=== PATIENT | male | born 1945 | race Caucasian/White ===

== ENCOUNTER → 2017-08-08 | Outpatient (CLI) | payer MEDICARE | END | disposition home or self-care (01) | LOC: SHCH 10:00 | PROVIDERS: ATTEND Internal Medicine Cardiovascular Disease | DX: I48.0 Paroxysmal atrial fibrillation (principal); I73.9 Peripheral vascular disease, unspecified | CPT/HCPCS: 93925 ==

== ENCOUNTER → 2018-09-03 | Outpatient (CLI) | payer OTHER | END | disposition home or self-care (01) | LOC: SHCH 13:49 | PROVIDERS: ATTEND Internal Medicine Cardiovascular Disease | DX: I08.3 Combined rheumatic disorders of mitral, aortic and tricuspid valves (principal); I11.9 Hypertensive heart disease without heart failure; I48.0 Paroxysmal atrial fibrillation | CPT/HCPCS: 93306 ==

== ENCOUNTER 2018-11-27 19:26 | Observation (INO) | payer OTHER ==
[~2018-11-27] VITALS: Ht 172.7 cm; Wt 85.3 kg
[2018-11-27 20:04] LABS: BASOPHILS % (AUTO) 0.6 % (0.0-5.0); HEMATOCRIT 51.5 % (42-54); LYMPHOCYTES % (AUTO) 17.5 % (21.0-51.0); MEAN CORPUSCULAR HEMOGLOBIN 29.9 pg (27.0-33.0); MEAN CORPUSCULAR HGB CONC 33.3 g/dL (32.0-36.0); MEAN CORPUSCULAR VOLUME 89.9 fL (79-99); MONOCYTES % (AUTO) 6.3 % (3.0-13.0); NEUTROPHILS % (AUTO) 74.6 % (40.0-77.0); PLATELET COUNT (AUTO) 272 K/uL (130-400); RED BLOOD CELL COUNT(AUTO) 5.73 MIL/uL (4.50-6.20); WHITE BLOOD COUNT (AUTO) 10.6 K/uL (4.8-10.8)
[2018-11-27 20:15] LABS: CREATININE 0.9 mg/dL (0.5-1.5); POTASSIUM 3.7 mmol/L (3.5-5.1)
[2018-11-27 20:17] LABS: INR 1.11 (0.85-1.15); PARTIAL THROMBOPLASTIN TIME 32.7 SEC (26.3-35.5); PROTHROMBIN TIME 11.6 SEC (9.6-11.6)
[2018-11-27 20:25] LABS: ALBUMIN 3.3 g/dL (3.5-5.0); BILIRUBIN,TOTAL 1.4 mg/dL (0.2-1.0); TOTAL PROTEIN, SERUM 7.4 g/dL (6.0-8.3)
[2018-11-27 20:31] LABS: B-TYPE NATRIURETIC PEPTIDE 108 pg/mL (0-100)
[2018-11-27] MEDS ORDERED: NITROGLYCERIN 1GM/1 INCH PACKET TD ONE (21:17)
[2018-11-27] MEDS ORDERED: SODIUM CHLORIDE 0.9% 1000ML 1,000 ML IV SCH (22:57)
[2018-11-27] MEDS ORDERED: MORPHINE SULFATE 4 MG/1ML SYG IV PRN (23:00)
[2018-11-27] MEDS ORDERED: MORPHINE SULFATE 2 MG/ML 1ML SYG IV PRN (23:00)
[2018-11-27] MEDS ORDERED: HYDRALAZINE HCL 20 MG/ML VIAL IV PRN (23:00)
[2018-11-27] MEDS ORDERED: NITROGLYCERIN 0.4 MG SL TAB SL ONE (23:06)
[2018-11-27] MEDS ORDERED: SODIUM CHLORIDE 0.9% 1000ML 1,000 ML IV ONE (23:46)
[2018-11-28 01:45] VITALS: BP 170/105
[2018-11-28] MEDS ORDERED: LIDOCAINE HCL-MPF 1% 2ML VIAL IVP PRN ×2 (02:30)
[2018-11-28] MEDS ORDERED: POTASSIUM CHLORIDE 10% ELIXIR 20 MEQ/15 ML UDCUP PO PRN (02:30)
[2018-11-28] MEDS ORDERED: POTASSIUM CHLORIDE 20MEQ/100ML 100 ML IV PRN ×2 (02:30)
[2018-11-28] MEDS ORDERED: CLONIDINE HCL 0.1 MG TABLET PO PRN (02:30)
[2018-11-28] MEDS ORDERED: ACETAMINOPHEN 325 MG TAB PO PRN ×2 (02:30)
[2018-11-28] MEDS ORDERED: POTASSIUM CHLORIDE 20 MEQ ERTAB PO PRN (02:30)
[2018-11-28 02:48] LABS: TROPONIN I 0.09 ng/mL (0.00-0.06)
--- NOTE | 2018-11-28 04:30 | NUR ---
PT ASSESSMENT COMPLETE. ADMISSION DATABASE COMPLETE. STATES HAD CHEST PAIN DURING THE DAY. HAS VALVE LEAK ACCORDING TO HIS FAMILY PRACTITIONER DR. BIRD ARNETT. PT AT THE MOMENT IS STABLE. NO PAIN. NO DISTRESS NOTED. IV FLUIDS CONTINUOUS. AAO3. MINIMAL CONFUSION AT TIMES, UNABLE TO RECALL INFORMATION AT TIMES.
[2018-11-28 04:51] VITALS: BP 150/100
--- NOTE | 2018-11-28 05:00 | NUR ---
PT REMOVED IV. NEW 20 G TO RIGHT FOREARM STARTED. PATENT. IV FLUIDS CONTINUOUS.
[2018-11-28] MEDS ORDERED: RIVA20TA PO (06:45)
[2018-11-28] MEDS ORDERED: DOCU250C14 PO (06:45)
[2018-11-28] MEDS ORDERED: FLUT1BLS3 IH (06:45)
[2018-11-28] MEDS ORDERED: FURO40TA5 PO (06:45)
[2018-11-28] MEDS ORDERED: ATEN25TA PO (06:45)
[2018-11-28] MEDS ORDERED: LISI-613 PO (06:45)
[2018-11-28] MEDS ORDERED: GLYC10.7 IH (06:45)
[2018-11-28] MEDS ORDERED: DIGO125T87 PO (06:45)
[2018-11-28] MEDS ORDERED: POTA20TA82 PO (06:45)
--- NOTE | 2018-11-28 06:46 | NUR ---
PT PICKED UP FOR 2VIEW CHEST XRAY
[2018-11-28 07:00] VITALS: BP 148/99
--- NOTE | 2018-11-28 07:20 | NUR ---
ENCOUNTERED PATIENT LAYING ON BED IN A SEMI-GALLAGHER' S POSITION WITH NO COMPLAINTS OF CHEST PAIN. HE DOES HOWEVER VOICED THAT HE STILL FEELS A BIT SHORT OF BREATH ONCE IN A WHILE ESPECIALLY WHEN HE IS AMBULATING. PATIENT IS KEPT NPO FOR EDWIN SCAN ORDERED BY KEL ALCARAZ. FULL ASSESSMENT DONE. CALL LIGHT WITHIN REACH. INSTRUCTED TO CALL FOR ASSISTANCE.
[2018-11-28 08:22] LABS: HEMATOCRIT 52.7 % (42-54); MEAN CORPUSCULAR HEMOGLOBIN 29.9 pg (27.0-33.0); MEAN CORPUSCULAR HGB CONC 32.9 g/dL (32.0-36.0); PLATELET COUNT (AUTO) 249 K/uL (130-400); RED BLOOD CELL COUNT(AUTO) 5.79 MIL/uL (4.50-6.20); RED CELL DISTRIBUTION WIDTH 15.8 % (11.0-15.5); WHITE BLOOD COUNT (AUTO) 9.9 K/uL (4.8-10.8)
[2018-11-28 08:41] LABS: ALBUMIN 3.3 g/dL (3.5-5.0); BILIRUBIN,TOTAL 1.8 mg/dL (0.2-1.0); CREATININE 0.9 mg/dL (0.5-1.5); POTASSIUM 4.2 mmol/L (3.5-5.1); TOTAL PROTEIN, SERUM 7.2 g/dL (6.0-8.3); TROPONIN I 0.11 ng/mL (0.00-0.06)
[2018-11-28] MEDS ORDERED: RIVAROXABAN 20 MG TABLET PO SCH (09:00)
[2018-11-28] MEDS ORDERED: FAMOTIDINE/PF 20 MG/2 ML VIAL IV SCH (09:00)
[2018-11-28] MEDS ORDERED: ASPIRIN 325 MG TABLET PO SCH (09:00)
[2018-11-28] MEDS ORDERED: METOPROLOL TARTRATE 25 MG TAB PO SCH (09:00)
[2018-11-28] MEDS ORDERED: ENOXAPARIN SODIUM 100 MG/1 ML SQ SCH (10:00)
[2018-11-28 11:00] VITALS: BP 159/98
--- NOTE | 2018-11-28 11:51 | NUR ---
DR. PARISH IS IN TO SEE PATIENT. HE IS STILL PENDING EDWIN.
[2018-11-28] MEDS ORDERED: REGADENOSON 0.4 MG/5 ML PF SYG IVP SCH (15:15)
[2018-11-28 16:00] VITALS: BP 175/98
[2018-11-28 17:20] VITALS: BP 153/92
[2018-11-28] MEDS ORDERED: NITR0.4T50 SL (18:41)
[2018-11-28] MEDS ORDERED: FURO40TA7 PO (18:41)
[2018-11-28] MEDS ORDERED: ISOS30TA6 PO (18:41)
--- NOTE | 2018-11-28 19:20 | NUR ---
DISCHARGE INSTRUCTIONS GIVEN TO PATIENT. TEACH BACK METHOD USED TO EDUCATE PATIENT ON DIET, MEDICATIONS, AND F/U APPOINTMENTS. PATIENT VERBALIZED UNDERSTANDING. PIV REMOVED. TIP INTACT. TELE REMOVED AND RETURNED. ALL BELONGINGS WERE PACKED.
[2018-11-28] MEDS ORDERED: ATORVASTATIN CALCIUM 40 MG TABLET PO SCH (21:00)
[2018-11-28] MEDS ORDERED: METOPROLOL TARTRATE 50 MG TAB PO SCH (21:00)
[2018-11-29] MEDS ORDERED: ASPIRIN 81MG TAB.CHEW PO SCH (09:00)
[2018-11-29] MEDS ORDERED: ASPIRIN 325 MG TABLET PO SCH (09:00)
[2018-11-29] MEDS ORDERED: DIGOXIN 125 MCG TABLET PO SCH (09:00)
== END 2018-11-28 20:05 | disposition home or self-care (01) ==
LOC: EDH 19:26 → EDHIP 19:27 → OBSVTOIN 19:27 → INTOOBSV 19:27 → 2DH 11-28 01:41
PROVIDERS: ADMIT Hospitalist; ATTEND Hospitalist
DX: I20.0 Unstable angina (principal); J44.1 Chronic obstructive pulmonary disease with (acute) exacerbation; G47.30 Sleep apnea, unspecified; I08.1 Rheumatic disorders of both mitral and tricuspid valves; I10 Essential (primary) hypertension; I48.2 Chronic atrial fibrillation; Z79.01 Long term (current) use of anticoagulants; Z79.899 Other long term (current) drug therapy; Z87.891 Personal history of nicotine dependence; Z82.49 Family history of ischemic heart disease and other diseases of the circulatory system
CPT/HCPCS: 36415 ×2; 71045; 71046; 78452; 80053 ×2; 80061; 82550 ×3; 83874 ×2; 83880; 84484 ×3; 85025; 85027; 85610; 85730; 93005; 93017; 96372; 96374; 99284; A9500 ×2; G0378 ×22; J1650; J2785; J3490; J7030

== ENCOUNTER → 2019-04-20 | Outpatient (CLI) | payer OTHER ==
[~2019-04-20] MED LIST: ATEN25TA PO; DIATR MEGLU/DIATRIZOATE SODIUM 30 ML BOTTLE ONE; DIATR MEGLU/DIATRIZOATE SODIUM 30 ML BOTTLE PO ONE; DIGO125T71 PO; DOCU250C14 PO; FLUT1BLS3 IH; FURO40TA7 PO; GLYC10.7 IH; ISOS30TA6 PO; LISI-613 PO; NITR0.4T50 SL; POTA20TA82 PO; RIVA20TA PO
== END | disposition home or self-care (01) ==
LOC: RAH 08:32
PROVIDERS: ATTEND Internal Medicine Gastroenterology
DX: K21.9 Gastro-esophageal reflux disease without esophagitis (principal)
CPT/HCPCS: 74240; Q9963

== ENCOUNTER 2019-09-30 15:43 | Emergency (ER) | payer OTHER ==
[~2019-09-30 15:43] MED LIST changes: -DIATR MEGLU/DIATRIZOATE SODIUM 30 ML BOTTLE ONE; -DIATR MEGLU/DIATRIZOATE SODIUM 30 ML BOTTLE PO ONE
[2019-09-30 16:40] LABS: BASOPHILS % (AUTO) 0.5 % (0.0-5.0); EOSINOPHILS % (AUTO) 1.7 % (0.0-8.0); HEMATOCRIT 47.6 % (42-54); LYMPHOCYTES % (AUTO) 22.8 % (21.0-51.0); MEAN CORPUSCULAR HEMOGLOBIN 29.3 pg (27.0-33.0); MEAN CORPUSCULAR HGB CONC 32.8 g/dL (32.0-36.0); MEAN CORPUSCULAR VOLUME 89.3 fL (79-99); MONOCYTES % (AUTO) 9.6 % (3.0-13.0); NEUTROPHILS % (AUTO) 65.1 % (40.0-77.0); PLATELET COUNT (AUTO) 250 K/uL (130-400); RED BLOOD CELL COUNT(AUTO) 5.33 MIL/uL (4.50-6.20); RED CELL DISTRIBUTION WIDTH 14.5 % (11.0-15.5); WHITE BLOOD COUNT (AUTO) 10.6 K/uL (4.8-10.8)
[2019-09-30 16:40] LABS: APPEARANCE,URINE Clear (CLEAR); BILIRUBIN,URINE Negative (NEGATIVE); COLOR,URINE Yellow (YELLOW); GLUCOSE, URINE (UA) Negative (NEGATIVE); KETONES,URINE Negative (NEGATIVE); LEUKOCYTE ESTERASE ,URINE Small (NEGATIVE); NITRATE,URINE Negative (NEGATIVE); OCCULT BLOOD,URINE Negative (NEGATIVE); PROTEIN,URINE Negative (NEGATIVE); UROBILINOGEN,URINE 0.2 mg/dL (0.2-1.0)
[2019-09-30 16:55] LABS: CREATININE 0.9 mg/dL (0.5-1.5); INR 1.22 (0.85-1.15); PARTIAL THROMBOPLASTIN TIME 35.9 SEC (26.3-35.5); POTASSIUM 3.9 mmol/L (3.5-5.1); PROTHROMBIN TIME 13.1 SEC (9.6-11.6)
[2019-09-30 17:02] LABS: ALBUMIN 3.7 g/dL (3.5-5.0); BILIRUBIN,TOTAL 1.7 mg/dL (0.2-1.0); TOTAL PROTEIN, SERUM 7.2 g/dL (6.0-8.3)
[2019-09-30 17:20] LABS: BACTERIA,URINE Few /HPF (None Seen); RBC,URINE None Seen /HPF (0-1)
[2019-09-30 17:21] LABS: SQUAMOUS EPITHELIAL CELL,UR 0-2 /HPF (0-2)
[2019-09-30] MEDS ORDERED: MORPHINE SULFATE 2 MG/ML 1ML SYG ONE (18:08)
[2019-09-30 20:03] LABS: DIGOXIN 0.47 ng/mL (0.50-2.00); THEOPHYLLINE 8.4 mcg/mL (10.0-20.0)
== END 2019-09-30 20:37 | disposition home or self-care (01) ==
LOC: EDH 15:43
DX: R25.2 Cramp and spasm (principal); M79.662 Pain in left lower leg; I48.91 Unspecified atrial fibrillation; J44.9 Chronic obstructive pulmonary disease, unspecified; Z98.890 Other specified postprocedural states
CPT/HCPCS: 36415; 80053; 80162; 80198; 81001; 82550; 83605; 83735; 85025; 85610; 85730; 93970; 96374

== ENCOUNTER → 2019-12-02 | Outpatient (CLI) | payer OTHER ==
[2019-12-02 12:14] LABS: CREATININE 0.9 mg/dL (0.5-1.5)
== END | disposition home or self-care (01) ==
LOC: LAB 11:21
PROVIDERS: ATTEND Otolaryngology Plastic Surgery within the Head & Neck
DX: H90.3 Sensorineural hearing loss, bilateral (principal)
CPT/HCPCS: 36415; 82565; 84520

== ENCOUNTER → 2019-12-11 | Outpatient (CLI) | payer OTHER ==
[~2019-12-11] MED LIST changes: +GADODIAMIDE 10 MMOL/20 ML VIAL IV ONE
== END | disposition home or self-care (01) ==
LOC: RAH 08:34
PROVIDERS: ATTEND Otolaryngology Plastic Surgery within the Head & Neck
DX: G31.9 Degenerative disease of nervous system, unspecified (principal); H70.91 Unspecified mastoiditis, right ear; H90.3 Sensorineural hearing loss, bilateral
CPT/HCPCS: 70553 ×2; A9579

== ENCOUNTER → 2022-04-05 | Outpatient (CLI) | payer OTHER ==
[~2022-04-05] MED LIST changes: -GADODIAMIDE 10 MMOL/20 ML VIAL IV ONE; -ISOS30TA6 PO; +ISOS30TA92 PO; -LISI-613 PO; +LISI20TA24 PO; +POTA-202 PO; -POTA20TA82 PO
== END | disposition home or self-care (01) ==
LOC: LAB 10:12
PROVIDERS: ATTEND Internal Medicine Cardiovascular Disease
DX: I48.0 Paroxysmal atrial fibrillation (principal)
CPT/HCPCS: 36415; 80162

== ENCOUNTER → 2022-05-24 | Outpatient (CLI) | payer OTHER ==
[2022-05-24 12:05] LABS: CREATININE 0.9 mg/dL (0.5-1.5)
== END | disposition home or self-care (01) ==
LOC: LAB 10:15
PROVIDERS: ATTEND Physician Assistant
DX: I48.0 Paroxysmal atrial fibrillation (principal); R60.9 Edema, unspecified
CPT/HCPCS: 36415; 80048; 83880

== ENCOUNTER → 2022-05-31 | Outpatient (CLI) | payer OTHER ==
[2022-05-31 16:48] LABS: DIGOXIN 0.36 ng/mL (0.50-2.00); MAGNESIUM 1.8 mg/dL (1.80-2.40); POTASSIUM 3.6 mmol/L (3.5-5.1)
== END | disposition home or self-care (01) ==
LOC: LAB 13:50
PROVIDERS: ATTEND Internal Medicine Cardiovascular Disease
DX: I10 Essential (primary) hypertension (principal); Z79.899 Other long term (current) drug therapy
CPT/HCPCS: 36415; 80048; 80162; 83735; 83880